=== PATIENT | male | born 1980 | race Caucasian/White ===

== ENCOUNTER → 2020-11-10 | Outpatient (CLI) | payer OTHER ==
--- NOTE | 2020-11-10 15:46 | RAD ---
EXAM: Bilateral knees, 3 views. HISTORY: Pain. COMPARISON: None. FINDINGS: 3 views of both knees are obtained. There are track adhikari with associated instrumentation w ithin the left knee due to prior anterior cruciate surgery. There is mild left medial compartment lety nt space narrowing. There is no fracture, dislocation or subluxation. There are small left and trace right knee effusions. IMPRESSION: 1. Findings consistent with left ACL repair. 2. Mild left medial compartment osteoarthritis. 3. Small left and trace right knee effusions. Electronically signed by: Cass Altamirano MD (11/10/2020 3:43 PM) [id number]
== END ==
LOC: RAD 15:05
PROVIDERS: ATTEND Physician Assistant
DX: M17.12 Unilateral primary osteoarthritis, left knee (principal); M25.862 Other specified joint disorders, left knee
CPT/HCPCS: 73560; 73565